=== PATIENT | male | born 1945 | race Caucasian/White ===

== ENCOUNTER 2016-12-03 16:30 | Emergency (ER) | payer MEDICARE ==
[2016-12-03 18:23] VITALS: BP 138/78
[2016-12-03] MEDS ORDERED: Doxycycline 100 MG Cap PO ONE (18:46)
--- NOTE | 2016-12-03 18:51 | EDM.PDOC ---
ED HPI GENERAL MEDICAL PROBLEM - General Chief Complaint: Bite:Animal, Insect Stated Complaint: WOODTICK Time Seen by Provider: 12/03/16 18:15 Source of Information: Reports: Patient History Limitations: Reports: No Limitations - History of Present Illness INITIAL COMMENTS - FREE TEXT/NARRATIVE: Nishant is a 71-year-old male who presents to the emergency department today after being bit by a tick to his left chest yesterday. Patient reports that his removed the body with tweezers but was unable to get the head out. He denies any other complaints. - Related Data Allergies Allergy/AdvReac Type Severity Reaction Status Date / Time No Known Allergies Allergy Verified 12/03/16 18:23 Home Meds: Home Meds Cholecalciferol (Vitamin D3) [Vitamin D] 1 cap PO DAILY 10/30/14 [History] PARoxetine HCl [Paxil] 10 mg PO DAILY 10/30/14 [History] atorvaSTATin [Lipitor] 10 mg PO BEDTIME 10/30/14 [History] metFORMIN [Glucophage] 500 mg PO BEDTIME 10/30/14 [History] Acetaminophen [Tylenol Arthritis Pain] 2 tab PO BEDTIME 07/16/15 [History] Aspirin [Halfprin] 81 mg PO DAILY 07/16/15 [History] Past Medical History HEENT History: Reports: Hard of Hearing Cardiovascular History: Reports: High Cholesterol Other Cardiovascular History: vaso vagal response Other Musculoskeletal History: right elbow 1992 with hardware Other Neuro History: numbness pain in right thigh "down the side" Psychiatric History: Reports: Depression Endocrine/Metabolic History: Reports: Diabetes, Type II Oncologic (Cancer) History: Reports: Basal Cell Carcinoma Other Dermatologic History: skin ca on nose and chest - Infectious Disease History Infectious Disease History: Reports: Chicken Pox, Measles, Mumps - Past Surgical History Other HEENT Surgeries/Procedures: BASAL CELL CARCINOMA OF THE NOSE X 2 Male Surgical History: Reports: Vasectomy Musculoskeletal Surgical History: Reports: Other (See Below) Other Musculoskeletal Surgeries/Procedures:: R ELBOW FX WITH HARDWARE REPAIR Social & Family History - Tobacco Use Smoking Status *Q: Unknown Ever Smoked Years of Tobacco use: 3 Used Tobacco, but Quit: Yes Month Tobacco Last Used: 12 Second Hand Smoke Exposure: No - Alcohol Use Days Per Week of Alcohol Use: 2 Number of Drinks Per Day: 2 Total Drinks Per Week: 4 - Recreational Drug Use Recreational Drug Use: No ED ROS GENERAL - Review of Systems Review Of Systems: ROS reveals no pertinent complaints other than HPI. ED EXAM, ANIMAL BITE - Physical Exam Exam: See Below Exam Limited By: No Limitations General Appearance: Alert, WD/WN, No Apparent Distress Throat/Mouth: Normal Inspection Head: Atraumatic Neck: Normal Inspection Respiratory/Chest: No Respiratory Distress, Lungs Clear, Normal Breath Sounds Cardiovascular: Regular Rate, Rhythm Back Exam: Normal Inspection Extremities: Normal Inspection Neurological: Alert, Oriented, CN II-XII Intact Psychiatric: Normal Affect, Normal Mood Skin Exam: Normal Color, Warm/Dry, Other (small tick that is embedded into left upper chest, this was removed without tweezers without difficulty. There is no evidence of cellulitis or infection. There is no bull's-eye rash.) Course - Vital Signs Last Recorded V/S: Last Vital Signs Temp 35.4 C 12/03/16 18:19 Pulse 66 12/03/16 18:19 Resp 15 12/03/16 18:19 BP 138/78 12/03/16 18:19 Pulse Ox 97 12/03/16 18:19 Nishant is a 71-year-old male who presents to the emergency department today with a tick bite his left upper chest with the head still embedded. The head was easily removed here in the ED. Patient is unsure what type of tick he was bit by, I did given a prophylactic dose of doxycycline as he was just that yesterday. Symptoms to monitor for for tick borne related illness were discussed with patient, he was agreeable to plan of care and discharged in stable condition. - Orders/Labs/Meds Orders: Active Orders 24 hr Category Date Time Status Doxycycline [Vibramycin] Med 12/03/16 18:46 Once 200 mg PO ONETIME ONE Departure - Departure Time of Disposition: 19:00 Disposition: Home, Self-Care 01 Condition: Good Clinical Impression: Tick bite Qualifiers: Encounter type: initial encounter Qualified Code(s): W57.XXXA - Bitten or stung by nonvenomous insect and other nonvenomous arthropods, initial encounter - Discharge Information Instructions: Ehrlichiosis and Anaplasmosis, Lyme Disease Referrals: Austyn Blackman Sr, MD [Primary Care Provider] - - My Orders Last 24 Hours: My Active Orders 12/03/16 18:46 Doxycycline [Vibramycin] 200 mg PO ONETIME ONE - Assessment/Plan Last 24 Hours: My Active Orders 12/03/16 18:46 Doxycycline [Vibramycin] 200 mg PO ONETIME ONE
== END 2016-12-03 19:19 | disposition home or self-care (01) ==
LOC: JP.ED 16:30
DX: S20.362A Insect bite (nonvenomous) of left front wall of thorax, initial encounter (principal); F32.9 Major depressive disorder, single episode, unspecified; E11.9 Type 2 diabetes mellitus without complications; Z87.891 Personal history of nicotine dependence; Z85.828 Personal history of other malignant neoplasm of skin; E78.00 Pure hypercholesterolemia, unspecified; Z79.82 Long term (current) use of aspirin; Z79.84 Long term (current) use of oral hypoglycemic drugs; Z79.899 Other long term (current) drug therapy; W57.XXXA Bitten or stung by nonvenomous insect and other nonvenomous arthropods, initial encounter
CPT/HCPCS: 99283; A9270

== ENCOUNTER 2017-05-31 12:03 | Inpatient (IN) | payer MEDICARE ==
[2017-05-31] MEDS ORDERED: Lactated Ringers 1,000 ML IV ONE (12:22)
[2017-05-31] MEDS ORDERED: Acetaminophen 500 MG Tab PO ONE (12:23)
--- NOTE | 2017-05-31 12:28 | EDM.PDOC ---
ED HPI GENERAL MEDICAL PROBLEM - General Chief Complaint: Genitourinary Problem Stated Complaint: MEDICAL VIA [facility] Time Seen by Provider: 05/31/17 12:15 Source of Information: Reports: Patient, Old Records, RN History Limitations: Reports: No Limitations - History of Present Illness INITIAL COMMENTS - FREE TEXT/NARRATIVE: 72 yo male is home alone for awhile while his is out of town. He is brought in via EMS today for a fall in his home last night not associated with injury and weakness today. Says his urine is dark and he has some dysuria and has had some urinary incontinence. No cough. Was not aware of his fever. Says he has been eating and drinking OK. Onset: Gradual Onset Date: 05/30/17 Duration: Hour(s):, Getting Worse Location: Reports: Generalized (weakness.) Quality: Reports: Other (mild dysuria is his only pain.) Severity: Moderate Improves with: Reports: Rest Worsens with: Reports: Movement (weak and dizzy when he tries to get up. Gait unsteady.) Context: Reports: Other (unknown) Associated Symptoms: Reports: Weakness. Denies: Cough, Fever/Chills (was unaware of a fever before arrival. ), Headaches, Nausea/Vomiting, Rash, Shortness of Breath Treatments CUSTOMER SERVICE AGENT: Reports: Other (see below) (none) - Related Data Allergies Allergy/AdvReac Type Severity Reaction Status Date / Time No Known Allergies Allergy Verified 05/31/17 12:25 Home Meds: Home Meds Cholecalciferol (Vitamin D3) [Vitamin D] 1 cap PO DAILY 10/30/14 [History] PARoxetine HCl [Paxil] 10 mg PO DAILY 10/30/14 [History] atorvaSTATin [Lipitor] 10 mg PO BEDTIME 10/30/14 [History] metFORMIN [Glucophage] 500 mg PO BEDTIME 10/30/14 [History] Acetaminophen [Tylenol Arthritis Pain] 2 tab PO BEDTIME 07/16/15 [History] Aspirin [Halfprin] 81 mg PO DAILY 07/16/15 [History] Past Medical History HEENT History: Reports: Hard of Hearing Cardiovascular History: Reports: High Cholesterol Other Cardiovascular History: vaso vagal response Other Musculoskeletal History: right elbow 1991 with hardware Other Neuro History: numbness pain in right thigh "down the side" Psychiatric History: Reports: Depression Endocrine/Metabolic History: Reports: Diabetes, Type II Oncologic (Cancer) History: Reports: Basal Cell Carcinoma Other Dermatologic History: skin ca on nose and chest - Infectious Disease History Infectious Disease History: Reports: Chicken Pox, Measles, Mumps - Past Surgical History Other HEENT Surgeries/Procedures: BASAL CELL CARCINOMA OF THE NOSE X 2 Male Surgical History: Reports: Vasectomy Musculoskeletal Surgical History: Reports: Other (See Below) Other Musculoskeletal Surgeries/Procedures:: R ELBOW FX WITH HARDWARE REPAIR Social & Family History - Tobacco Use Smoking Status *Q: Unknown Ever Smoked Years of Tobacco use: 3 Used Tobacco, but Quit: Yes Month/Year Tobacco Last Used: 12 Second Hand Smoke Exposure: No - Alcohol Use Days Per Week of Alcohol Use: 2 Number of Drinks Per Day: 2 Total Drinks Per Week: 4 - Recreational Drug Use Recreational Drug Use: No ED ROS GENERAL - Review of Systems Review Of Systems: See Below Constitutional: Reports: Weakness HEENT: Reports: No Symptoms Respiratory: Reports: No Symptoms Cardiovascular: Reports: No Symptoms GI/Abdominal: Reports: No Symptoms : Reports: Dysuria, Incontinence Musculoskeletal: Reports: No Symptoms Skin: Reports: No Symptoms Neurological: Reports: Gait Disturbance (ataxic) Psychiatric: Reports: No Symptoms ED EXAM, RENAL/ - Physical Exam Exam: See Below Exam Limited By: No Limitations General Appearance: Alert, WD/WN, No Apparent Distress Eye Exam: Bilateral Eye: Normal Inspection Ears: Normal External Exam, Normal Canal, Hearing Grossly Normal, Normal TMs Nose: Normal Inspection, Normal Mucosa Throat/Mouth: Normal Inspection, Normal Lips, Normal Oropharynx, Normal Voice, No Airway Compromise Head: Atraumatic Neck: Normal Inspection, Supple Respiratory/Chest: No Respiratory Distress, Lungs Clear, Normal Breath Sounds, No Accessory Muscle Use Cardiovascular: Regular Rate, Rhythm, No Edema GI/Abdominal: Normal Bowel Sounds, Soft, Non-Tender, No Distention (Male) Exam: Other (pants wet from urinary incontinence. ) Back Exam: Normal Inspection. No: CVA Tenderness (R), CVA Tenderness (L) Extremities: Normal Inspection, Normal Range of Motion, Non-Tender, No Pedal Edema Neurological: Alert, Oriented, CN II-XII Intact, Normal Cognition, No Motor/ Sensory Deficits Psychiatric: Normal Affect, Normal Mood Skin Exam: Warm, Dry, Intact, Normal Color, No Rash Lymphatic: No Adenopathy Course - Vital Signs Text/Narrative:: Dr. Aguilar notified @ 1402h of need for admission. Last Recorded V/S: Last Vital Signs Temp 38.4 C H 05/31/17 12:22 Pulse 86 05/31/17 12:22 Resp 14 05/31/17 12:22 BP 111/62 05/31/17 12:22 Pulse Ox 93 L 05/31/17 12:22 - Orders/Labs/Meds Orders: Active Orders 24 hr Category Date Time Status CULTURE BLOOD [BC] Stat Lab 05/31/17 13:15 Ordered CULTURE URINE [RM] Stat Lab 05/31/17 13:40 Received UA W/MICROSCOPIC [URIN] Stat Lab 05/31/17 13:17 Ordered cefTRIAXone [Rocephin] 1 gm Med 05/31/17 13:38 Active Sodium Chloride 0.9% [Normal Saline] 50 ml IV ONETIME Medication Orders Ceftriaxone Sodium 1 gm/ (Sodium Chloride) 50 mls @ 100 mls/hr IV ONETIME ONE Stop: 05/31/17 14:07 Labs: Laboratory Tests 05/31/17 05/31/17 05/31/17 Range/Units 12:22 12:22 13:17 WBC 22.8 H (4.5-11.0) K/uL RBC 4.75 (4.30-5.90) M/uL Hgb 13.6 (12.0-15.0) g/dL Hct 40.8 (40.0-54.0) % MCV 86 (80-98) fL MCH 29 (27-31) pg MCHC 33 (32-36) % Plt Count 181 (150-400) K/uL Sodium 139 L (140-148) mmol/L Potassium 4.3 (3.6-5.2) mmol/L Chloride 103 (100-108) mmol/L Carbon Dioxide 26 (21-32) mmol/L Anion Gap 14.3 H (5.0-14.0) mmol/L BUN 16 (7-18) mg/dL Creatinine 1.1 (0.8-1.3) mg/dL Est Cr Clr Drug Dosing 62.68 mL/min Estimated GFR (MDRD) > 60 (>60) Glucose 162 H (74-106) mg/dL Calcium 8.7 (8.5-10.1) mg/dL Urine Color Yellow Urine Appearance Cloudy Urine pH 5.0 (4.5-8.0) Ur Specific [place] 1.020 (1.008-1.030) Urine Protein 30 H (NEGATIVE) mg/dL Urine Glucose (UA) Normal (NEGATIVE) mg/dL Urine Ketones Negative (NEGATIVE) mg/dL Urine Occult Blood Large (NEGATIVE) Urine Nitrite Positive H (NEGAITVE) Urine Bilirubin Small (NEGATIVE) Urine Urobilinogen 1 (NORMAL) mg/dL Ur Leukocyte Esterase Moderate (NEGATIVE) Urine RBC 5-10 H (0-5) Urine WBC 75-100 H (0-5) Ur Epithelial Cells Not seen Amorphous Sediment Not seen Urine Bacteria Many Urine Mucus Few Meds: Medications Generic Name Dose Route Start Last Admin Trade Name Freq PRN Reason Stop Dose Admin Ceftriaxone Sodium 1 gm/ 50 mls @ 100 mls/hr 05/31/17 13:38 Sodium Chloride IV 05/31/17 14:07 ONETIME ONE Discontinued Medications Generic Name Dose Route Start Last Admin Trade Name Freq PRN Reason Stop Dose Admin Acetaminophen 1,000 mg 05/31/17 12:23 05/31/17 13:19 Tylenol Extra Strength PO 05/31/17 12:24 1,000 mg ONETIME ONE Administration Lactated Ringer's 1,000 mls @ 1,000 mls/hr 05/31/17 12:22 05/31/17 13:19 Ringers, Lactated IV 05/31/17 13:21 1,000 mls/hr BOLUS ONE Administration Departure - Departure Time of Disposition: 14:30 Disposition: Admitted As Inpatient 66 Condition: Fair Clinical Impression: Urinary tract infection with fever - Discharge Information Referrals: PCP,None [Primary Care Provider] - Forms: ED Department Discharge - My Orders Last 24 Hours: My Active Orders 05/31/17 13:15 CULTURE BLOOD [BC] Stat 05/31/17 13:17 UA W/MICROSCOPIC [URIN] Stat 05/31/17 13:38 cefTRIAXone [Rocephin] 1 gm Sodium Chloride 0.9% [Normal Saline] 50 ml IV ONETIME 05/31/17 13:40 CULTURE URINE [RM] Stat - Assessment/Plan Last 24 Hours: My Active Orders 05/31/17 13:15 CULTURE BLOOD [BC] Stat 05/31/17 13:17 UA W/MICROSCOPIC [URIN] Stat 05/31/17 13:38 cefTRIAXone [Rocephin] 1 gm Sodium Chloride 0.9% [Normal Saline] 50 ml IV ONETIME 05/31/17 13:40 CULTURE URINE [RM] Stat
[2017-05-31] MEDS ORDERED: cefTRIAXone 1 GM in Sodium Chloride 0.9% 50 ML IV ONE ×2 (13:38→14:15)
--- NOTE | 2017-05-31 13:59 | CR ---
Cardiomegaly. This is mild and unchanged. No focal consolidation. Pulmonary vasculature within normal limits.
--- NOTE | 2017-05-31 14:43 | PCM.HP ---
H&P History of Present Illness - General Date of Service: 05/31/17 Admit Problem/Dx: Admission Diagnosis/Problem Admission Diagnosis/Problem UTI (urinary tract infection) due to urinary indwelling catheter Source of Information: Patient, EMS, EMS Notes Reviewed History Limitations: Reports: No Limitations - History of Present Illness Initial Comments - Free Text/Narative: He started to have urine burning and increased frequency yesterday. He in gone for 2 weeks so he called her and she said to call the EMS and go to the ER. This morning he also had a bad smell from the urine. He had also fever and chills. Onset of Symptoms: Reports: Sudden Symptom Onset Date: 05/31/17 Duration of Symptoms: Reports: Day(s): Location: Reports: Other (Pain over the bladder area.) - Related Data Allergies/Adverse Reactions: Allergies Allergy/AdvReac Type Severity Reaction Status Date / Time No Known Allergies Allergy Verified 05/31/17 12:25 Home Medications: Home Meds Cholecalciferol (Vitamin D3) [Vitamin D] 1 cap PO DAILY 10/30/14 [History] PARoxetine HCl [Paxil] 10 mg PO DAILY 10/30/14 [History] atorvaSTATin [Lipitor] 10 mg PO BEDTIME 10/30/14 [History] metFORMIN [Glucophage] 500 mg PO BEDTIME 10/30/14 [History] Acetaminophen [Tylenol Arthritis Pain] 2 tab PO BEDTIME 07/16/15 [History] Aspirin [Halfprin] 81 mg PO DAILY 07/16/15 [History] Past Medical History HEENT History: Reports: Hard of Hearing Cardiovascular History: Reports: High Cholesterol Other Cardiovascular History: vaso vagal response Other Musculoskeletal History: right elbow 1991 with hardware Other Neuro History: numbness pain in right thigh "down the side" Psychiatric History: Reports: Depression Endocrine/Metabolic History: Reports: Diabetes, Type II Oncologic (Cancer) History: Reports: Basal Cell Carcinoma Other Dermatologic History: skin ca on nose and chest - Infectious Disease History Infectious Disease History: Reports: Chicken Pox, Measles, Mumps - Past Surgical History Other HEENT Surgeries/Procedures: BASAL CELL CARCINOMA OF THE NOSE X 2 Male Surgical History: Reports: Vasectomy Musculoskeletal Surgical History: Reports: Other (See Below) Other Musculoskeletal Surgeries/Procedures:: R ELBOW FX WITH HARDWARE REPAIR Social & Family History - Tobacco Use Smoking Status *Q: Unknown Ever Smoked Years of Tobacco use: 3 Used Tobacco, but Quit: Yes Month/Year Tobacco Last Used: 12 Second Hand Smoke Exposure: No - Alcohol Use Days Per Week of Alcohol Use: 2 Number of Drinks Per Day: 2 Total Drinks Per Week: 4 - Recreational Drug Use Recreational Drug Use: No H&P Review of Systems - Review of Systems: Review Of Systems: See Below General: Reports: Fever, Chills, Weakness, Decreased Appetite HEENT: Reports: No Symptoms Pulmonary: Reports: No Symptoms Cardiovascular: Reports: No Symptoms Gastrointestinal: Reports: No Symptoms Genitourinary: Reports: Dysuria, Frequency, Burning, Pain, Urgency, Incontinence Musculoskeletal: Reports: No Symptoms Skin: Reports: No Symptoms Psychiatric: Reports: No Symptoms Neurological: Reports: No Symptoms Hematologic/Lymphatic: Reports: No Symptoms Immunologic: Reports: No Symptoms Exam - Exam Exam: See Below - Vital Signs Vital Signs: Last Vital Signs Temp 101.2 F H 05/31/17 12:22 Pulse 86 05/31/17 12:22 Resp 14 05/31/17 12:22 BP 111/62 05/31/17 12:22 Pulse Ox 93 L 05/31/17 12:22 Weight: 172 lb - Exam General: Other (He was initally confused when coming to the ER and given fluid and he improved mentally) HEENT: PERRLA, Hearing Intact, Mucosa Moist & [place], Nares Patent, Normal Nasal Septum, Posterior Pharynx Clear, Conjunctiva Clear, EOMI, EACs Clear, TMs Clear Neck: Supple, Trachea Midline, 2 Lungs: Clear to Auscultation, Normal Respiratory Effort Cardiovascular: Regular Rate, Regular Rhythm GI/Abdominal Exam: Normal Bowel Sounds, Soft, Non-Tender, No Organomegaly, No Distention, No Abnormal Bruit, No Mass, Pelvis Stable (Male) Exam: Other (There is pain to palpation over the bladder area.) Rectal (Males) Exam: Normal Exam, Normal Rectal Tone, Prostate Normal Back Exam: Normal Inspection, Full Range of Motion, NT Extremities: Normal Inspection Peripheral Pulses: 1+: Radial (L), Radial (R) Skin: Warm Neurological: Cranial Nerves Intact, Reflexes Equal Bilateral Neuro Extensive - Mental Status: Alert, Oriented x3, Normal Mood/Affect, Normal Cognition Neuro Extensive - Motor, Sensory, Reflexes: CN II-XII Intact, Normal Gait, Normal Reflexes DTR: 1+: Bicep (L), Bicep (R) Psychiatric: Alert, Normal Affect, Normal Mood - Patient Data Lab Results Last 24 hrs: Laboratory Results - last 24 hr 05/31/17 05/31/17 05/31/17 Range/Units 12:22 12:22 13:17 WBC 22.8 H (4.5-11.0) K/uL RBC 4.75 (4.30-5.90) M/uL Hgb 13.6 (12.0-15.0) g/dL Hct 40.8 (40.0-54.0) % MCV 86 (80-98) fL MCH 29 (27-31) pg MCHC 33 (32-36) % Plt Count 181 (150-400) K/uL Sodium 139 L (140-148) mmol/L Potassium 4.3 (3.6-5.2) mmol/L Chloride 103 (100-108) mmol/L Carbon Dioxide 26 (21-32) mmol/L Anion Gap 14.3 H (5.0-14.0) mmol/L BUN 16 (7-18) mg/dL Creatinine 1.1 (0.8-1.3) mg/dL Est Cr Clr Drug Dosing 62.68 mL/min Estimated GFR (MDRD) > 60 (>60) Glucose 162 H (74-106) mg/dL Calcium 8.7 (8.5-10.1) mg/dL Urine Color Yellow Urine Appearance Cloudy Urine pH 5.0 (4.5-8.0) Ur Specific [place] 1.020 (1.008-1.030) Urine Protein 30 H (NEGATIVE) mg/dL Urine Glucose (UA) Normal (NEGATIVE) mg/dL Urine Ketones Negative (NEGATIVE) mg/dL Urine Occult Blood Large (NEGATIVE) Urine Nitrite Positive H (NEGAITVE) Urine Bilirubin Small (NEGATIVE) Urine Urobilinogen 1 (NORMAL) mg/dL Ur Leukocyte Esterase Moderate (NEGATIVE) Urine RBC 5-10 H (0-5) Urine WBC 75-100 H (0-5) Ur Epithelial Cells Not seen Amorphous Sediment Not seen Urine Bacteria Many Urine Mucus Few Result Diagrams: 06/01/17 04:55 05/31/17 12:22 Problem List Initiated/Reviewed/Updated: Yes Orders Last 24hrs: Active Orders 24 hr Category Date Time Status Patient Status [ADT] Routine ADT 05/31/17 14:28 Ordered Ambulate [RC] QID Care 05/31/17 14:27 Ordered Blood Glucose Check, Bedside [RC] QIDACANDBED Care 05/31/17 14:34 Ordered Height and Weight [RC] UPON Care 05/31/17 14:27 Ordered Intake and Output [RC] QSHIFT Care 05/31/17 14:30 Ordered Oxygen Therapy [RC] PRN Care 05/31/17 14:28 Ordered Up ad Josie [RC] ASDIRECTED Care 05/31/17 14:27 Ordered Up to Chair [RC] QID Care 05/31/17 14:27 Ordered VTE/DVT Education [RC] Per Unit Routine Care 05/31/17 14:28 Ordered Vital Signs [RC] Q4H Care 05/31/17 14:28 Ordered Regular Diet [DIET] Diet 05/31/17 Dinner Ordered CBC WITH AUTO DIFF [HEME] AM Lab 06/01/17 05:11 Ordered CULTURE BLOOD [BC] Stat Lab 05/31/17 13:15 Ordered CULTURE URINE [RM] Stat Lab 05/31/17 13:40 Received UA W/MICROSCOPIC [URIN] Stat Lab 05/31/17 13:17 Ordered Acetaminophen [Tylenol Arthritis Pain] Med 05/31/17 21:00 Ordered 2 tab PO BEDTIME Aspirin [Halfprin] Med 06/01/17 09:00 Ordered 81 mg PO DAILY Cholecalciferol (Vitamin D3) [Vitamin D3] Med 06/01/17 09:00 Ordered 1 cap PO DAILY Levofloxacin/Dextrose 5%-Water [Levaquin in D5W 500 MG/ Med 05/31/17 14:45 Ordered 100 ML] 500 mg Premix Bag 1 bag IV Q24H PARoxetine HCl [Paxil] Med 06/01/17 09:00 Ordered 10 mg PO DAILY atorvaSTATin [Lipitor] Med 05/31/17 21:00 Ordered 10 mg PO BEDTIME cefTRIAXone [Rocephin] 1 gm Med 05/31/17 14:15 Active Sodium Chloride 0.9% [Normal Saline] 50 ml IV ONETIME cefTRIAXone [Rocephin] 1 gm Med 05/31/17 14:45 Ordered Sodium Chloride 0.9% [Normal Saline] 50 ml IV Q24H metFORMIN [Glucophage] Med 05/31/17 21:00 Ordered 500 mg PO BEDTIME Resuscitation Status Routine Resus Stat 05/31/17 14:27 Ordered Medication Orders Aspirin (Halfprin) 81 mg PO DAILY JIMMY Atorvastatin Calcium (Lipitor) 10 mg PO BEDTIME JIMMY Ceftriaxone Sodium 1 gm/ (Sodium Chloride) 50 mls @ 100 mls/hr IV ONETIME ONE Stop: 05/31/17 14:44 Ceftriaxone Sodium 1 gm/ (Sodium Chloride) 50 mls @ 100 mls/hr IV Q24H JIMMY Levofloxacin/Dextrose 500 mg/ (Premix) 100 mls @ 100 mls/hr IV Q24H JIMMY Metformin HCl (Glucophage) 500 mg PO BEDTIME JIMMY Non-Formulary Medication (Acetaminophen [Tylenol Arthritis Pain]) 2 tab PO BEDTIME JIMMY Non-Formulary Medication (Cholecalciferol (Vitamin D3) [Vitamin D3]) 1 cap PO DAILY JIMMY Non-Formulary Medication (Paroxetine Hcl [Paxil]) 10 mg PO DAILY JIMMY Assessment/Plan Comment:: Assessment/Plan: #1. Sepsis with UTI: Will start Rocephin and Levoquin #2. DM II: Will continue with meds and check blood sugars. #3. HLD: Continue with the Statin. #4. Depression: Continue with the Med.
[2017-05-31] MEDS: Levofloxacin/Dextrose 5%-Water 500 MG in Premix Bag 1 BAG IV SCH (16:39)
[2017-05-31] MEDS: Lactated Ringers 1,000 ML IV SCH (17:16)
[2017-05-31] MEDS: Acetaminophen 325 MG Tab PO PRN (19:20)
[2017-05-31] MEDS: metFORMIN 500 MG Tab.ER PO SCH (20:52)
[2017-05-31] MEDS: atorvaSTATin 10 MG Tab PO SCH (20:52)
[2017-05-31] MEDS: Acetaminophen 325 MG Tab PO SCH (20:52)
[2017-05-31] MEDS ORDERED: ACETAMINOPHEN PO SCH (21:00)
[2017-05-31] MEDS ORDERED: metFORMIN 500 MG Tab PO SCH (21:00)
[2017-05-31] MEDS ORDERED: Lactated Ringers 250 ML IV SCH (23:45)
[2017-06-01] MEDS: Lactated Ringers 1,000 ML IV SCH ×2 (00:58→23:18)
[2017-06-01] MEDS: Acetaminophen 325 MG Tab PO PRN (01:09)
[2017-06-01] MEDS ORDERED: PAROXETINE HCL 10 MG PO SCH (09:00)
[2017-06-01] MEDS ORDERED: CHOLECALCIFEROL PO SCH (09:00)
[2017-06-01] MEDS: Cholecalciferol (Vitamin D3) 1,000 Unit Tab PO SCH (09:22)
[2017-06-01] MEDS: Aspirin 81 MG Tab.EC PO SCH (09:22)
[2017-06-01] MEDS: PARoxetine 20 MG Tab PO SCH (09:23)
[2017-06-01] MEDS ORDERED: cefTRIAXone 1 GM in Sodium Chloride 0.9% 50 ML IV SCH (14:00)
[2017-06-01] MEDS: Levofloxacin/Dextrose 5%-Water 500 MG in Premix Bag 1 BAG IV SCH (15:14)
--- NOTE | 2017-06-01 18:56 | PCM.HP ---
H&P History of Present Illness - General Date of Service: 05/31/17 Admit Problem/Dx: Admission Diagnosis/Problem Admission Diagnosis/Problem UTI (urinary tract infection) Source of Information: Patient History Limitations: Reports: No Limitations - History of Present Illness Initial Comments - Free Text/Narative: Started having fever and chills in the evening then became disorientated. He was confused and called 911 and came to the ER . The temp the nest morning was almost 102 degrees F. Onset of Symptoms: Reports: Gradual Location: Reports: Other (Bladder area pain) Improves with: Reports: None Worsens with: Reports: None - Related Data Allergies/Adverse Reactions: Allergies Allergy/AdvReac Type Severity Reaction Status Date / Time No Known Allergies Allergy Verified 05/31/17 12:25 Home Medications: Home Meds Cholecalciferol (Vitamin D3) [Vitamin D] 1 cap PO DAILY 10/30/14 [History] PARoxetine HCl [Paxil] 10 mg PO DAILY 10/30/14 [History] atorvaSTATin [Lipitor] 10 mg PO BEDTIME 10/30/14 [History] metFORMIN [Glucophage] 500 mg PO BEDTIME 10/30/14 [History] Acetaminophen [Tylenol Arthritis Pain] 2 tab PO BEDTIME 07/16/15 [History] Aspirin [Halfprin] 81 mg PO DAILY 07/16/15 [History] Past Medical History HEENT History: Reports: Hard of Hearing Cardiovascular History: Reports: High Cholesterol Other Cardiovascular History: vaso vagal response Other Musculoskeletal History: right elbow 1992 with hardware Other Neuro History: numbness pain in right thigh "down the side" Psychiatric History: Reports: Depression Endocrine/Metabolic History: Reports: Diabetes, Type II Oncologic (Cancer) History: Reports: Basal Cell Carcinoma Other Dermatologic History: skin ca on nose and chest - Infectious Disease History Infectious Disease History: Reports: Chicken Pox, Measles, Mumps - Past Surgical History Other HEENT Surgeries/Procedures: BASAL CELL CARCINOMA OF THE NOSE X 2 Male Surgical History: Reports: Vasectomy Musculoskeletal Surgical History: Reports: Other (See Below) Other Musculoskeletal Surgeries/Procedures:: R ELBOW FX WITH HARDWARE REPAIR Social & Family History - Tobacco Use Smoking Status *Q: Former Smoker Years of Tobacco use: 4 Used Tobacco, but Quit: Yes Month/Year Tobacco Last Used: 1967 Second Hand Smoke Exposure: No - Caffeine Use Caffeine Use: Reports: Coffee - Alcohol Use Days Per Week of Alcohol Use: 5 Number of Drinks Per Day: 1 Total Drinks Per Week: 5 - Recreational Drug Use Recreational Drug Use: No H&P Review of Systems - Review of Systems: Review Of Systems: See Below General: Reports: Fever, Chills, Malaise, Weakness, Fatigue HEENT: Reports: No Symptoms, Other (nose unremarkable) Pulmonary: Reports: No Symptoms Cardiovascular: Reports: No Symptoms Gastrointestinal: Reports: No Symptoms Genitourinary: Reports: Dysuria, Frequency Musculoskeletal: Reports: No Symptoms Skin: Reports: No Symptoms Psychiatric: Reports: No Symptoms Neurological: Reports: No Symptoms Hematologic/Lymphatic: Reports: No Symptoms Exam - Exam Exam: See Below - Vital Signs Vital Signs: Last Vital Signs Temp 97.3 F 06/01/17 18:21 Pulse 76 06/01/17 18:21 Resp 18 06/01/17 18:21 BP 125/68 06/01/17 18:21 Pulse Ox 100 06/01/17 18:21 Weight: 181 lb 6.412 oz - Exam General: Alert, Oriented, 4 HEENT: PERRLA, Hearing Intact, Mucosa Moist & [place], Nares Patent, Normal Nasal Septum, Posterior Pharynx Clear, Conjunctiva Clear, EOMI, EACs Clear, TMs Clear Neck: Supple, Trachea Midline, 2 Lungs: Clear to Auscultation, Normal Respiratory Effort Cardiovascular: Regular Rate, Regular Rhythm GI/Abdominal Exam: Normal Bowel Sounds, Soft, Non-Tender, No Organomegaly, No Distention, No Abnormal Bruit, No Mass, Pelvis Stable Back Exam: Normal Inspection, Full Range of Motion, NT Peripheral Pulses: 1+: Radial (L), Radial (R) Skin: Warm, Dry, Intact Neuro Extensive - Mental Status: Alert, Oriented x3, Normal Mood/Affect, Normal Cognition Neuro Extensive - Motor, Sensory, Reflexes: CN II-XII Intact, Normal Gait, Normal Reflexes DTR: 1+: Bicep (L), Bicep (R) Psychiatric: Alert, Normal Affect, Normal Mood - Patient Data Lab Results Last 24 hrs: Laboratory Results - last 24 hr 06/01/17 Range/Units 04:55 WBC 19.0 H (4.5-11.0) K/uL RBC 4.23 L (4.30-5.90) M/uL Hgb 12.2 (12.0-15.0) g/dL Hct 37.0 L (40.0-54.0) % MCV 88 (80-98) fL MCH 29 (27-31) pg MCHC 33 (32-36) % Plt Count 148 L (150-400) K/uL Neut % (Auto) 80 H (36-66) % Lymph % (Auto) 12 L (24-44) % [place] % (Auto) 7 H (2-6) % Eos % (Auto) 0 L (2-4) % Baso % (Auto) 0 (0-1) % Result Diagrams: 06/01/17 04:55 05/31/17 12:22 Reji Results Last 24 hrs: Microbiology 05/31/17 13:15 Aerobic Blood Culture - Preliminary Blood - Arm, Left NO GROWTH AFTER 1 DAY Anaerobic Blood Culture - Preliminary NO GROWTH AFTER 1 DAY 05/31/17 13:40 Urine Culture - Preliminary Urine, Catheterized Problem List Initiated/Reviewed/Updated: Yes Orders Last 24hrs: Active Orders 24 hr Category Date Time Status GLUCOSE POC LAB TO COLLECT [POC] BID Lab 06/02/17 17:45 Ordered GLUCOSE POC LAB TO COLLECT [POC] BID Lab 06/03/17 17:45 Ordered GLUCOSE POC LAB TO COLLECT [POC] BID Lab 06/04/17 17:45 Ordered GLUCOSE POC LAB TO COLLECT [POC] BID Lab 06/05/17 17:45 Ordered GLUCOSE POC LAB TO COLLECT [POC] BID Lab 06/06/17 17:45 Ordered GLUCOSE POC LAB TO COLLECT [POC] BID Lab 06/07/17 17:45 Ordered GLUCOSE POC LAB TO COLLECT [POC] DAILY Lab 06/02/17 08:00 Ordered Acetaminophen [Tylenol] Med 05/31/17 21:00 Active 650 mg PO BEDTIME Acetaminophen [Tylenol] Med 05/31/17 18:59 Active 650 mg PO Q4H PRN Aspirin [Halfprin] Med 06/01/17 09:00 Active 81 mg PO DAILY Cholecalciferol (Vitamin D3) [Vitamin D3] Med 06/01/17 09:00 Active 2,000 units PO DAILY PARoxetine [Paxil] Med 06/01/17 09:00 Active 10 mg PO DAILY atorvaSTATin [Lipitor] Med 05/31/17 21:00 Active 10 mg PO BEDTIME cefTRIAXone [Rocephin] 1 gm Med 06/01/17 14:00 Active Sodium Chloride 0.9% [Normal Saline] 50 ml IV Q24H metFORMIN [Glucophage XR] Med 05/31/17 21:00 Active 500 mg PO BEDTIME SCD [Sequential Compression Device] [OM.PC] Routine Oth 06/01/17 00:32 Ordered Medication Orders Acetaminophen (Tylenol) 650 mg PO BEDTIME [facility] Last Admin: 05/31/17 20:52 Dose: 650 mg Acetaminophen (Tylenol) 650 mg PO Q4H PRN PRN Reason: Pain/Fever Last Admin: 06/01/17 01:09 Dose: 650 mg Admin: 05/31/17 19:20 Dose: 650 mg Aspirin (Halfprin) 81 mg PO DAILY [facility] Last Admin: 06/01/17 09:22 Dose: 81 mg Atorvastatin Calcium (Lipitor) 10 mg PO BEDTIME [facility] Last Admin: 05/31/17 20:52 Dose: 10 mg Cholecalciferol (Vitamin D3) 2,000 units PO DAILY [facility] Last Admin: 06/01/17 09:22 Dose: 2,000 units Ceftriaxone Sodium 1 gm/ (Sodium Chloride) 50 mls @ 100 mls/hr IV Q24H [facility] Last Admin: 06/01/17 13:30 Dose: 100 mls/hr Levofloxacin/Dextrose 500 mg/ (Premix) 100 mls @ 100 mls/hr IV Q24H [facility] Last Admin: 06/01/17 15:14 Dose: 100 mls/hr Infusion: 05/31/17 17:39 Dose: 100 mls/hr Admin: 05/31/17 16:39 Dose: 100 mls/hr Lactated Ringer's (Ringers, Lactated) 1,000 mls @ 100 mls/hr IV ASDIRECTED [facility] Last Admin: 06/01/17 00:58 Dose: 100 mls/hr Infusion: 06/01/17 00:58 Dose: 100 mls/hr Admin: 05/31/17 17:16 Dose: 100 mls/hr Metformin HCl (Glucophage Xr) 500 mg PO BEDTIME [facility] Last Admin: 05/31/17 20:52 Dose: 500 mg Paroxetine HCl (Paxil) 10 mg PO DAILY [facility] Last Admin: 06/01/17 09:23 Dose: 10 mg Assessment/Plan Comment:: Assessment/Plan: #1. Sepsis with UTI: Will start Rocephin and Levaquin #2. DM II: Will continue with meds and check blood sugars. #3. HLD: Continue with the Statin. #4. Depression: Continue with the Med.
--- NOTE | 2017-06-01 19:02 | PCM.PN ---
- General Info Date of Service: 06/01/17 Functional Status: Reports: Pain Controlled - Review of Systems General: Reports: Weakness HEENT: Reports: No Symptoms Pulmonary: Reports: No Symptoms Cardiovascular: Reports: No Symptoms Gastrointestinal: Reports: No Symptoms Genitourinary: Reports: No Symptoms Musculoskeletal: Reports: No Symptoms Neurological: Reports: No Symptoms Psychiatric: Reports: No Symptoms - Patient Data Vitals - Most Recent: Last Vital Signs Temp 97.3 F 06/01/17 18:21 Pulse 76 06/01/17 18:21 Resp 18 06/01/17 18:21 BP 125/68 06/01/17 18:21 Pulse Ox 100 06/01/17 18:21 Weight - Most Recent: 172 lb I&O - Last 24 Hours: Intake & Output 06/01/17 06/01/17 06/01/17 06:59 14:59 22:59 Intake Total 1250 50 1073 Output Total 700 200 Balance 1250 -650 873 Lab Results Last 24 Hours: Laboratory Results - last 24 hr 06/01/17 Range/Units 04:55 WBC 19.0 H (4.5-11.0) K/uL RBC 4.23 L (4.30-5.90) M/uL Hgb 12.2 (12.0-15.0) g/dL Hct 37.0 L (40.0-54.0) % MCV 88 (80-98) fL MCH 29 (27-31) pg MCHC 33 (32-36) % Plt Count 148 L (150-400) K/uL Neut % (Auto) 80 H (36-66) % Lymph % (Auto) 12 L (24-44) % [place] % (Auto) 7 H (2-6) % Eos % (Auto) 0 L (2-4) % Baso % (Auto) 0 (0-1) % Reji Results Last 24 Hours: Microbiology 05/31/17 13:15 Aerobic Blood Culture - Preliminary Blood - Arm, Left NO GROWTH AFTER 1 DAY Anaerobic Blood Culture - Preliminary NO GROWTH AFTER 1 DAY 05/31/17 13:40 Urine Culture - Preliminary Urine, Catheterized Med Orders - Current: Current Medications Acetaminophen (Tylenol) 650 mg PO BEDTIME [facility] Last Admin: 05/31/17 20:52 Dose: 650 mg Acetaminophen (Tylenol) 650 mg PO Q4H PRN PRN Reason: Pain/Fever Last Admin: 06/01/17 01:09 Dose: 650 mg Aspirin (Halfprin) 81 mg PO DAILY [facility] Last Admin: 06/01/17 09:22 Dose: 81 mg Atorvastatin Calcium (Lipitor) 10 mg PO BEDTIME [facility] Last Admin: 05/31/17 20:52 Dose: 10 mg Cholecalciferol (Vitamin D3) 2,000 units PO DAILY [facility] Last Admin: 06/01/17 09:22 Dose: 2,000 units Ceftriaxone Sodium 1 gm/ (Sodium Chloride) 50 mls @ 100 mls/hr IV Q24H [facility] Last Admin: 06/01/17 13:30 Dose: 100 mls/hr Levofloxacin/Dextrose 500 mg/ (Premix) 100 mls @ 100 mls/hr IV Q24H [facility] Last Admin: 06/01/17 15:14 Dose: 100 mls/hr Lactated Ringer's (Ringers, Lactated) 1,000 mls @ 100 mls/hr IV ASDIRECTED [facility] Last Admin: 06/01/17 00:58 Dose: 100 mls/hr Metformin HCl (Glucophage Xr) 500 mg PO BEDTIME [facility] Last Admin: 05/31/17 20:52 Dose: 500 mg Paroxetine HCl (Paxil) 10 mg PO DAILY [facility] Last Admin: 06/01/17 09:23 Dose: 10 mg Discontinued Medications Acetaminophen (Tylenol Extra Strength) 1,000 mg PO ONETIME ONE Stop: 05/31/17 12:24 Last Admin: 05/31/17 13:19 Dose: 1,000 mg Lactated Ringer's (Ringers, Lactated) 1,000 mls @ 1,000 mls/hr IV BOLUS ONE Stop: 05/31/17 13:21 Last Admin: 05/31/17 13:19 Dose: 1,000 mls/hr Ceftriaxone Sodium 1 gm/ (Sodium Chloride) 50 mls @ 100 mls/hr IV ONETIME ONE Stop: 05/31/17 14:44 Last Admin: 05/31/17 15:41 Dose: 100 mls/hr Lactated Ringer's (Ringers, Lactated) 250 mls @ 250 mls/hr IV ASDIRECTED [facility] Last Admin: 05/31/17 23:50 Dose: 250 mls/hr - Exam General: Alert, Oriented HEENT: Pupils Equal, Pupils Reactive, EOMI, Mucous Membr. Moist/[place] Neck: Supple Lungs: Clear to Auscultation, Normal Respiratory Effort Cardiovascular: Regular Rate, Regular Rhythm GI/Abdominal Exam: Normal Bowel Sounds, Soft, Non-Tender, No Organomegaly, No Distention, No Abnormal Bruit, No Mass, Pelvis Stable Back Exam: Normal Inspection, Full Range of Motion Peripheral Pulses: 1+: Radial (L), Radial (R) Skin: Warm, Dry, Intact Neurological: No New Focal Deficit - Problem List Review Problem List Initiated/Reviewed/Updated: Yes - My Orders Last 24 Hours: My Active Orders 05/31/17 18:59 Acetaminophen [Tylenol] 650 mg PO Q4H PRN 05/31/17 21:00 Acetaminophen [Tylenol] 650 mg PO BEDTIME atorvaSTATin [Lipitor] 10 mg PO BEDTIME metFORMIN [Glucophage XR] 500 mg PO BEDTIME 06/01/17 00:32 SCD [Sequential Compression Device] [OM.PC] Routine 06/01/17 09:00 Aspirin [Halfprin] 81 mg PO DAILY Cholecalciferol (Vitamin D3) [Vitamin D3] 2,000 units PO DAILY PARoxetine [Paxil] 10 mg PO DAILY 06/01/17 14:00 cefTRIAXone [Rocephin] 1 gm Sodium Chloride 0.9% [Normal Saline] 50 ml IV Q24H 06/02/17 08:00 GLUCOSE POC LAB TO COLLECT [POC] DAILY 06/02/17 17:45 GLUCOSE POC LAB TO COLLECT [POC] BID 06/03/17 17:45 GLUCOSE POC LAB TO COLLECT [POC] BID 06/04/17 17:45 GLUCOSE POC LAB TO COLLECT [POC] BID 06/05/17 17:45 GLUCOSE POC LAB TO COLLECT [POC] BID 06/06/17 17:45 GLUCOSE POC LAB TO COLLECT [POC] BID 06/07/17 17:45 GLUCOSE POC LAB TO COLLECT [POC] BID - Plan Plan:: Assessment/Plan: #1. Sepsis with UTI: He did have a low BP last night but improved today. Will continue with the antibiotics until cultures are reported. #2. DM II: Will continue with meds and check blood sugars. #3. HLD: Continue with the Statin. #4. Depression: Continue with the Med.
[2017-06-01] MEDS: atorvaSTATin 10 MG Tab PO SCH (21:03)
[2017-06-01] MEDS: metFORMIN 500 MG Tab.ER PO SCH (21:03)
[2017-06-01] MEDS: Acetaminophen 325 MG Tab PO SCH (21:03)
[2017-06-02] MEDS: Aspirin 81 MG Tab.EC PO SCH (08:13)
[2017-06-02] MEDS: PARoxetine 20 MG Tab PO SCH (08:13)
[2017-06-02] MEDS: Cholecalciferol (Vitamin D3) 1,000 Unit Tab PO SCH (08:13)
[2017-06-02] MEDS ORDERED: cefTRIAXone 1 GM in Sodium Chloride 0.9% 50 ML IV ONE (11:00)
[2017-06-02 11:11] VITALS: BP 119/73
[2017-06-02] MEDS ORDERED: Levofloxacin/Dextrose 5%-Water 500 MG in Premix Bag 1 BAG IV ONE (12:00)
--- NOTE | 2017-06-02 14:07 | PCM.PN ---
- General Info Date of Service: 06/02/17 Subjective Update: He is feeling better and mentally alert. Functional Status: Reports: Pain Controlled - Review of Systems General: Reports: No Symptoms HEENT: Reports: No Symptoms Pulmonary: Reports: No Symptoms Cardiovascular: Reports: No Symptoms Gastrointestinal: Reports: No Symptoms Musculoskeletal: Reports: No Symptoms Skin: Reports: No Symptoms Neurological: Reports: No Symptoms Psychiatric: Reports: No Symptoms - Patient Data Vitals - Most Recent: Last Vital Signs Temp 98.3 F 06/02/17 11:09 Pulse 64 06/02/17 11:09 Resp 16 06/02/17 11:09 BP 119/73 06/02/17 11:09 Pulse Ox 97 06/02/17 11:09 Weight - Most Recent: 172 lb I&O - Last 24 Hours: Intake & Output 06/01/17 06/02/17 06/02/17 22:59 06:59 14:59 Intake Total 1553 1137 630 Output Total 400 650 300 Balance 1153 487 330 Lab Results Last 24 Hours: Laboratory Results - last 24 hr 06/02/17 06/02/17 Range/Units 07:54 08:00 WBC 8.3 (4.5-11.0) K/uL RBC 4.20 L (4.30-5.90) M/uL Hgb 12.0 (12.0-15.0) g/dL Hct 36.3 L (40.0-54.0) % MCV 86 (80-98) fL MCH 29 (27-31) pg MCHC 33 (32-36) % Plt Count 155 (150-400) K/uL Neut % (Auto) 68 H (36-66) % Lymph % (Auto) 17 L (24-44) % [place] % (Auto) 12 H (2-6) % Eos % (Auto) 2 (2-4) % Baso % (Auto) 1 (0-1) % Sodium 140 (140-148) mmol/L Potassium 4.1 (3.6-5.2) mmol/L Chloride 106 (100-108) mmol/L Carbon Dioxide 27 (21-32) mmol/L Anion Gap 7.2 (5.0-14.0) mmol/L BUN 12 (7-18) mg/dL Creatinine 0.8 (0.8-1.3) mg/dL Est Cr Clr Drug Dosing 86.39 mL/min Estimated GFR (MDRD) > 60 (>60) Glucose 140 H (74-106) mg/dL Calcium 8.2 L (8.5-10.1) mg/dL Reji Results Last 24 Hours: Microbiology 05/31/17 13:15 Aerobic Blood Culture - Preliminary Blood - Arm, Left NO GROWTH AFTER 2 DAYS Anaerobic Blood Culture - Preliminary NO GROWTH AFTER 2 DAYS 05/31/17 13:40 Urine Culture - Final Urine, Catheterized Citrobacter Amalonaticus Med Orders - Current: Current Medications Acetaminophen (Tylenol) 650 mg PO BEDTIME [facility] Last Admin: 06/01/17 21:03 Dose: 650 mg Acetaminophen (Tylenol) 650 mg PO Q4H PRN PRN Reason: Pain/Fever Last Admin: 06/01/17 01:09 Dose: 650 mg Aspirin (Halfprin) 81 mg PO DAILY [facility] Last Admin: 06/02/17 08:13 Dose: 81 mg Atorvastatin Calcium (Lipitor) 10 mg PO BEDTIME [facility] Last Admin: 06/01/17 21:03 Dose: 10 mg Cholecalciferol (Vitamin D3) 2,000 units PO DAILY [facility] Last Admin: 06/02/17 08:13 Dose: 2,000 units Lactated Ringer's (Ringers, Lactated) 1,000 mls @ 100 mls/hr IV ASDIRECTED [facility] Last Admin: 06/01/17 23:18 Dose: 100 mls/hr Metformin HCl (Glucophage Xr) 500 mg PO BEDTIME [facility] Last Admin: 06/01/17 21:03 Dose: 500 mg Paroxetine HCl (Paxil) 10 mg PO DAILY [facility] Last Admin: 06/02/17 08:13 Dose: 10 mg Discontinued Medications Acetaminophen (Tylenol Extra Strength) 1,000 mg PO ONETIME ONE Stop: 05/31/17 12:24 Last Admin: 05/31/17 13:19 Dose: 1,000 mg Lactated Ringer's (Ringers, Lactated) 1,000 mls @ 1,000 mls/hr IV BOLUS ONE Stop: 05/31/17 13:21 Last Admin: 05/31/17 13:19 Dose: 1,000 mls/hr Ceftriaxone Sodium 1 gm/ (Sodium Chloride) 50 mls @ 100 mls/hr IV ONETIME ONE Stop: 05/31/17 14:44 Last Admin: 05/31/17 15:41 Dose: 100 mls/hr Ceftriaxone Sodium 1 gm/ (Sodium Chloride) 50 mls @ 100 mls/hr IV Q24H [facility] Last Admin: 06/01/17 13:30 Dose: 100 mls/hr Levofloxacin/Dextrose 500 mg/ (Premix) 100 mls @ 100 mls/hr IV Q24H [facility] Last Admin: 06/01/17 15:14 Dose: 100 mls/hr Lactated Ringer's (Ringers, Lactated) 250 mls @ 250 mls/hr IV ASDIRECTED [facility] Last Admin: 05/31/17 23:50 Dose: 250 mls/hr Ceftriaxone Sodium 1 gm/ (Sodium Chloride) 50 mls @ 100 mls/hr IV ONETIME ONE Stop: 06/02/17 11:29 Last Admin: 06/02/17 10:35 Dose: 100 mls/hr Levofloxacin/Dextrose 500 mg/ (Premix) 100 mls @ 100 mls/hr IV ONETIME ONE Stop: 06/02/17 12:59 Last Admin: 06/02/17 11:12 Dose: 100 mls/hr - Exam General: Alert, Oriented HEENT: Pupils Equal, Pupils Reactive, EOMI, Mucous Membr. Moist/[place] Neck: Supple Lungs: Clear to Auscultation, Normal Respiratory Effort Cardiovascular: Regular Rate, Regular Rhythm GI/Abdominal Exam: Normal Bowel Sounds, Soft, Non-Tender, No Organomegaly, No Distention, No Abnormal Bruit, No Mass, Pelvis Stable Back Exam: Normal Inspection, Full Range of Motion Peripheral Pulses: 1+: Radial (L), Radial (R) Skin: Warm, Dry, Intact Neurological: No New Focal Deficit Psy/Mental Status: Alert, Normal Affect, Normal Mood - Problem List Review Problem List Initiated/Reviewed/Updated: Yes - My Orders Last 24 Hours: My Active Orders 06/02/17 17:45 GLUCOSE POC LAB TO COLLECT [POC] BID 06/03/17 17:45 GLUCOSE POC LAB TO COLLECT [POC] BID 06/04/17 17:45 GLUCOSE POC LAB TO COLLECT [POC] BID 06/05/17 17:45 GLUCOSE POC LAB TO COLLECT [POC] BID 06/06/17 17:45 GLUCOSE POC LAB TO COLLECT [POC] BID 06/07/17 17:45 GLUCOSE POC LAB TO COLLECT [POC] BID - Plan Plan:: Assessment/Plan: #1. Sepsis with UTI: Stable presently with ID of the infection and will DC home on Cipro. Bacteriia was Citrobacter Amanituaticus #2. DM II: Stable #3. HLD: Continue with the Statin. #4. Depression: Continue with the Med. #5. Blood Pressure stable.
--- NOTE | 2017-06-02 14:10 | PCM.DCSUM1 ---
Discharge Summary - Hospital Course Brief History: He started to have urine burning and increased frequency the day before coming to the ER. He in gone for 2 weeks so he called her and she said to call the EMS and go to the ER. That morning he also had a bad smell from the urine. He had also fever and chills - Discharge Data Discharge Date: 06/02/17 Discharge Disposition: Home, Self-Care 01 Condition: Fair - Patient Summary/Data Hospital Course: He was started on Rocephin and Levaquin and improved. Initially when coming to the ER he was confused. He also had hypotension initially. He made gradual improvement and is being DC in stable condition. - Patient Instructions Diet: Heart Healthy Diet Activity: As Tolerated - Discharge Plan Prescriptions/Med Rec: Ciprofloxacin HCl [Cipro] 500 mg PO BID 7 Days #14 tablet Home Medications: Home Meds Cholecalciferol (Vitamin D3) [Vitamin D3] 1 cap PO DAILY 10/30/14 [History] PARoxetine HCl [Paxil] 10 mg PO DAILY 10/30/14 [History] atorvaSTATin [Lipitor] 10 mg PO BEDTIME 10/30/14 [History] metFORMIN [Glucophage] 500 mg PO BEDTIME 10/30/14 [History] Aspirin [Halfprin] 81 mg PO DAILY 07/16/15 [History] Ciprofloxacin HCl [Cipro] 500 mg PO BID 7 Days #14 tablet 06/02/17 [Rx] Forms: ED Department Discharge Referrals: PCP,None [Primary Care Provider] - - Discharge Summary/Plan Comment DC Time >30 min.: Yes Discharge Summary/Plan Comment: Assessment/Plan: #1. Sepsis with UTI: Stable presently with ID of the infection and will DC home on Cipro. Bacteriia was Citrobacter Amanituaticus #2. DM II: Stable #3. HLD: Continue with the Statin. #4. Depression: Continue with the Med. #5. Blood Pressure stable. - Patient Data Vitals - Most Recent: Last Vital Signs Temp 98.3 F 06/02/17 11:09 Pulse 64 06/02/17 11:09 Resp 16 06/02/17 11:09 BP 119/73 06/02/17 11:09 Pulse Ox 97 06/02/17 11:09 Weight - Most Recent: 172 lb I&O - Last 24 hours: Intake & Output 06/01/17 06/02/17 06/02/17 22:59 06:59 14:59 Intake Total 1553 1137 630 Output Total 400 650 300 Balance 1153 487 330 Lab Results - Last 24 hrs: Laboratory Results - last 24 hr 06/02/17 06/02/17 Range/Units 07:54 08:00 WBC 8.3 (4.5-11.0) K/uL RBC 4.20 L (4.30-5.90) M/uL Hgb 12.0 (12.0-15.0) g/dL Hct 36.3 L (40.0-54.0) % MCV 86 (80-98) fL MCH 29 (27-31) pg MCHC 33 (32-36) % Plt Count 155 (150-400) K/uL Neut % (Auto) 68 H (36-66) % Lymph % (Auto) 17 L (24-44) % [place] % (Auto) 12 H (2-6) % Eos % (Auto) 2 (2-4) % Baso % (Auto) 1 (0-1) % Sodium 140 (140-148) mmol/L Potassium 4.1 (3.6-5.2) mmol/L Chloride 106 (100-108) mmol/L Carbon Dioxide 27 (21-32) mmol/L Anion Gap 7.2 (5.0-14.0) mmol/L BUN 12 (7-18) mg/dL Creatinine 0.8 (0.8-1.3) mg/dL Est Cr Clr Drug Dosing 86.39 mL/min Estimated GFR (MDRD) > 60 (>60) Glucose 140 H (74-106) mg/dL Calcium 8.2 L (8.5-10.1) mg/dL JAMSHID Results - Last 24 hrs: Microbiology 05/31/17 13:15 Aerobic Blood Culture - Preliminary Blood - Arm, Left NO GROWTH AFTER 2 DAYS Anaerobic Blood Culture - Preliminary NO GROWTH AFTER 2 DAYS 05/31/17 13:40 Urine Culture - Final Urine, Catheterized Citrobacter Amalonaticus Med Orders - Current: Current Medications Acetaminophen (Tylenol) 650 mg PO BEDTIME [facility] Last Admin: 06/01/17 21:03 Dose: 650 mg Acetaminophen (Tylenol) 650 mg PO Q4H PRN PRN Reason: Pain/Fever Last Admin: 06/01/17 01:09 Dose: 650 mg Aspirin (Halfprin) 81 mg PO DAILY [facility] Last Admin: 06/02/17 08:13 Dose: 81 mg Atorvastatin Calcium (Lipitor) 10 mg PO BEDTIME [facility] Last Admin: 06/01/17 21:03 Dose: 10 mg Cholecalciferol (Vitamin D3) 2,000 units PO DAILY [facility] Last Admin: 06/02/17 08:13 Dose: 2,000 units Lactated Ringer's (Ringers, Lactated) 1,000 mls @ 100 mls/hr IV ASDIRECTED [facility] Last Admin: 06/01/17 23:18 Dose: 100 mls/hr Metformin HCl (Glucophage Xr) 500 mg PO BEDTIME [facility] Last Admin: 06/01/17 21:03 Dose: 500 mg Paroxetine HCl (Paxil) 10 mg PO DAILY [facility] Last Admin: 06/02/17 08:13 Dose: 10 mg Discontinued Medications Acetaminophen (Tylenol Extra Strength) 1,000 mg PO ONETIME ONE Stop: 05/31/17 12:24 Last Admin: 05/31/17 13:19 Dose: 1,000 mg Lactated Ringer's (Ringers, Lactated) 1,000 mls @ 1,000 mls/hr IV BOLUS ONE Stop: 05/31/17 13:21 Last Admin: 05/31/17 13:19 Dose: 1,000 mls/hr Ceftriaxone Sodium 1 gm/ (Sodium Chloride) 50 mls @ 100 mls/hr IV ONETIME ONE Stop: 05/31/17 14:44 Last Admin: 05/31/17 15:41 Dose: 100 mls/hr Ceftriaxone Sodium 1 gm/ (Sodium Chloride) 50 mls @ 100 mls/hr IV Q24H [facility] Last Admin: 06/01/17 13:30 Dose: 100 mls/hr Levofloxacin/Dextrose 500 mg/ (Premix) 100 mls @ 100 mls/hr IV Q24H [facility] Last Admin: 06/01/17 15:14 Dose: 100 mls/hr Lactated Ringer's (Ringers, Lactated) 250 mls @ 250 mls/hr IV ASDIRECTED [facility] Last Admin: 05/31/17 23:50 Dose: 250 mls/hr Ceftriaxone Sodium 1 gm/ (Sodium Chloride) 50 mls @ 100 mls/hr IV ONETIME ONE Stop: 06/02/17 11:29 Last Admin: 06/02/17 10:35 Dose: 100 mls/hr Levofloxacin/Dextrose 500 mg/ (Premix) 100 mls @ 100 mls/hr IV ONETIME ONE Stop: 06/02/17 12:59 Last Admin: 06/02/17 11:12 Dose: 100 mls/hr
== END 2017-06-02 15:05 | disposition home or self-care (01) | DRG 872 ==
LOC: JP.ED 12:03 → JP.MS 14:27
PROVIDERS: ADMIT Internal Medicine; ATTEND Internal Medicine
DX: N39.0 Urinary tract infection, site not specified (principal); R50.9 Fever, unspecified; E78.00 Pure hypercholesterolemia, unspecified; A41.9 Sepsis, unspecified organism; B96.89 Other specified bacterial agents as the cause of diseases classified elsewhere; E11.9 Type 2 diabetes mellitus without complications; Z79.899 Other long term (current) drug therapy; E78.5 Hyperlipidemia, unspecified; F32.9 Major depressive disorder, single episode, unspecified; Z85.828 Personal history of other malignant neoplasm of skin
CPT/HCPCS: 36415; 51798; 71046 ×2; 80048; 81001; 85027; 87040; 87086; 87088; 87186; 96360; 99285; A9270; J7120; 82962; 85025; J0696; J1956; J7050

== ENCOUNTER 2018-05-19 13:11 | Emergency (ER) | payer MEDICARE, BC ==
[2018-05-19 13:26] VITALS: BP 127/63
--- NOTE | 2018-05-19 13:35 | EDM.PDOC ---
ED HPI GENERAL MEDICAL PROBLEM - General Chief Complaint: Lower Extremity Injury/Pain Stated Complaint: FELL ON ICE/HIP Time Seen by Provider: 05/19/18 13:15 Source of Information: Reports: Patient, Family History Limitations: Reports: No Limitations - History of Present Illness INITIAL COMMENTS - FREE TEXT/NARRATIVE: 73-year-old male slipped on the ice falling hard on his left hip this morning. It's painful to stand and bear weight, he can ambulate by "limping along". No other injury. Pain is mostly located in the posterior left hip and buttock. Onset: Sudden Duration: Hour(s): (Within the past few hours) Location: Reports: Lower Extremity, Left Worsens with: Reports: Other (Movement or weightbearing) Associated Symptoms: Reports: No Other Symptoms Left Hip Pain Score (Numeric/FACES): 5 - Related Data Allergies Allergy/AdvReac Type Severity Reaction Status Date / Time No Known Allergies Allergy Verified 05/19/18 13:26 Home Meds: Home Meds Cholecalciferol (Vitamin D3) [Vitamin D3] 1 cap PO DAILY 10/30/14 [History] atorvaSTATin [Lipitor] 10 mg PO BEDTIME 10/30/14 [History] metFORMIN [Glucophage] 500 mg PO BEDTIME 10/30/14 [History] Aspirin [Halfprin] 81 mg PO DAILY 07/16/15 [History] Sertraline HCl 50 mg PO DAILY 05/19/18 [History] Past Medical History HEENT History: Reports: Hard of Hearing Cardiovascular History: Reports: High Cholesterol Other Cardiovascular History: vaso vagal response Genitourinary History: Reports: BPH Other Musculoskeletal History: right elbow 1992 with hardware Other Neuro History: numbness pain in right thigh "down the side" Psychiatric History: Reports: Depression Endocrine/Metabolic History: Reports: Diabetes, Type II Oncologic (Cancer) History: Reports: Basal Cell Carcinoma Other Dermatologic History: skin ca on nose and chest - Infectious Disease History Infectious Disease History: Reports: Chicken Pox, Measles, Mumps - Past Surgical History Other HEENT Surgeries/Procedures: BASAL CELL CARCINOMA OF THE NOSE X 2 Male Surgical History: Reports: Vasectomy Musculoskeletal Surgical History: Reports: Other (See Below) Other Musculoskeletal Surgeries/Procedures:: R ELBOW FX WITH HARDWARE REPAIR Social & Family History - Caffeine Use Caffeine Use: Reports: Coffee Review of Systems - Review of Systems Review Of Systems: See Below Constitutional: Denies: Fever Respiratory: Reports: No Symptoms Cardiovascular: Reports: No Symptoms GI/Abdominal: Reports: No Symptoms Skin: Denies: Bruising Neurological: Denies: Paresthesia (No numbness of the leg) Psychiatric: Reports: No Symptoms ED EXAM, GENERAL - Physical Exam Exam: See Below Exam Limited By: No Limitations General Appearance: Alert, No Apparent Distress, Other (Fairly comfortable when lying still and supine position) Respiratory/Chest: No Respiratory Distress Extremities: Other (Remainder of the exam is limited to the lower extremities. Internal and extra rotation passively of the left hip causes intense pain with external rotation but not flexion or extension. The gluteal muscle is more tender to palpation than the femur itself. There is no shortening of the leg or rotation.) Course - Vital Signs Last Recorded V/S: Last Vital Signs Temp 97.4 F 05/19/18 13:22 Pulse 64 05/19/18 13:22 Resp 16 05/19/18 13:22 BP 127/63 05/19/18 13:22 Pulse Ox 96 05/19/18 13:22 - Orders/Labs/Meds Meds: Medications Discontinued Medications Generic Name Dose Route Start Last Admin Trade Name Freq PRN Reason Stop Dose Admin Ibuprofen 600 mg 05/19/18 14:00 05/19/18 14:06 Motrin PO 05/19/18 14:01 600 mg ONETIME ONE Administration - Re-Assessments/Exams Free Text/Narrative Re-Assessment/Exam: 05/19/18 13:34 A pelvis x-ray along with left hip was obtained. 05/19/18 14:52 IMPRESSION: Linear lucency through the left greater trochanter. An acute fracture could be considered. CT scan should be considered if there is clinical suspicion for acute fracture. Patient remained comfortable but his hip x-ray was inconclusive, this will be followed by a noncontrast left hip CT scan. 05/19/18 16:58 CT scan confirmed a comminuted nondisplaced greater trochanteric fracture. The results were discussed with orthopedics, they recommended nonweightbearing on the left leg and follow-up with orthopedics next . This was discussed with the patient and his . They are in agreement with the plan. Departure - Departure Time of Disposition: 17:16 Disposition: Home, Self-Care 01 Condition: Good Clinical Impression: Closed trochanteric fracture of femur Qualifiers: Encounter type: initial encounter Laterality: left Qualified Code(s): S72.102A - Unspecified trochanteric fracture of left femur, initial encounter for closed fracture - Discharge Information Instructions: Hip Fracture, Crutch Use, Adult Referrals: Katy Winn MD [Primary Care Provider] - Forms: ED Department Discharge Care Plan Goals: Use crutches to avoid weightbearing on the left leg. Recheck with Micky Cisneros at the clinic, orthopedics, on of next week. Call for an appointment time. A regular dose of ibuprofen or naproxen along with topical ice will be beneficial. Add stronger pain medications if needed.
[2018-05-19] MEDS ORDERED: Ibuprofen 600 MG Tab PO ONE (14:00)
--- NOTE | 2018-05-19 14:47 | CRLCR ---
3 VIEWS pelvis with left hip INDICATION: Injury. IMPRESSION: Linear lucency through the left greater trochanter. An acute fracture could be considered. CT scan should be considered if there is clinical suspicion for acute fracture. FINDINGS: Frogleg lateral view, the linear lucency is present through the greater trochanter and is only seen on the lateral projection. However, there could be a very subtle cortical lucency along the medial superior aspect of the greater trochanter on the AP view. Both hips are anatomically aligned. Symmetric mild narrowing in the hip joint spaces. Large amount of colonic stool. The bony pelvis is intact. Dictated by Alverto Ruvalcaba MD @ May 19 2018 2:42PM Signed by Dr. Alverto Ruvalcaba @ May 19 2018 2:45PM
--- NOTE | 2018-05-19 16:42 | CRLCT ---
HISTORY: Hip pain after falling injury. FINDINGS: The pelvis and left hip were studied in the axial plane. Sagittal and coronal 2 dimensional reconstructions were then performed. There is a comminuted, essentially nondisplaced fracture isolated to the left greater trochanteric region without a complete fracture of the proximal femur. There is no evidence for fracture elsewhere. 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 Severe degenerative disc disease is noted at L5/S1. No findings for mass lesion or hematoma. IMPRESSION: Comminuted fracture isolated to the left greater trochanter. A complete, transverse fracture of the proximal femur is not identified. Please note that all CT scans at this facility use dose modulation, iterative reconstruction, and/or weight-based dosing when appropriate to reduce radiation dose to as low as reasonably achievable. Dictated by Rashad Joseph MD @ May 19 2018 7:15PM Signed by Dr. Rashad Joseph @ May 19 2018 7:19PM
== END 2018-05-19 17:16 | disposition home or self-care (01) ==
LOC: JP.ED 13:11
DX: S72.102A Unspecified trochanteric fracture of left femur, initial encounter for closed fracture (principal); E11.9 Type 2 diabetes mellitus without complications; E78.00 Pure hypercholesterolemia, unspecified; Z79.82 Long term (current) use of aspirin; Z79.84 Long term (current) use of oral hypoglycemic drugs; W00.0XXA Fall on same level due to ice and snow, initial encounter
CPT/HCPCS: 73502; 73700; 99284; A9270

== ENCOUNTER 2018-10-23 07:26 | Day surgery (SDC) | payer MEDICARE, BC ==
[2018-10-23] MEDS ORDERED: Dextrose 5%-Lactated Ringers 1,000 ML IV SCH (08:00)
[2018-10-23] MEDS ORDERED: Propofol 200 MG/20 ML SDV ONE (11:00)
[2018-10-23] MEDS ORDERED: fentaNYL 100 MCG/2 ML SDV ONE (11:00)
[2018-10-23 12:53] VITALS: BP 131/84; PULSE 77
--- NOTE | 2018-10-25 08:49 | OR ---
DATE OF PROCEDURE: 10/23/2018 PREOPERATIVE DIAGNOSIS: History of colon polyps. POSTOPERATIVE DIAGNOSES: 1. History of colon polyps. 2. Normal colonoscopic examination today. OPERATIVE PROCEDURE: Screening colonoscopy. ANESTHESIA: IV sedation. INDICATIONS FOR PROCEDURE: This is a 73-year-old status post a colonoscopy, done in [place] in 2013. At that time, a polyp was reported in the splenic flexure area, and at this point, a followup colonoscopy with biopsies and/or polypectomy as indicated. Potential risks including bleeding and perforation were discussed, and the patient wishes to proceed. DETAILS OF PROCEDURE: The patient was taken to the operating room and placed in a left lateral decubitus position. IV sedation was administered, after which the initial digital rectal exam was performed and was unremarkable. The colonoscope was then placed into the rectum with retroflexion revealing uncomplicated hemorrhoidal columns. Scope was eventually passed to the level of the cecum. The prep was quite good to that level. No abnormalities were noted. Specifically, there were no areas of diverticular disease. No areas of colitis, and no polyps or other signs of neoplasia. The scope was then withdrawn, the above findings were reconfirmed, and the procedure was then concluded. Given the patient's history of colon polyps 5 years ago, he should have a repeat colonoscopy in 5 years. Lan Galarza MD /[id number]
== END 2018-10-23 13:20 | disposition home or self-care (01) ==
LOC: JP.SDS 07:26
PROVIDERS: ATTEND Surgery
DX: Z12.11 Encounter for screening for malignant neoplasm of colon (principal); K64.9 Unspecified hemorrhoids; Z86.010 Personal history of colon polyps
CPT/HCPCS: G0121; J2704; J3010; J7042

== ENCOUNTER 2024-08-02 10:26 | Emergency (ER) | payer MEDICARE, BC ==
[2024-08-02 10:38] VITALS: BP 111/75; PULSE 51
[2024-08-02] MEDS: Doxycycline 100 MG Cap PO ONE (11:08)
== END 2024-08-02 11:13 | disposition home or self-care (01) ==
LOC: JP.ED 10:26
DX: S70.361A Insect bite (nonvenomous), right thigh, initial encounter (principal); E78.00 Pure hypercholesterolemia, unspecified; E11.9 Type 2 diabetes mellitus without complications; Z79.899 Other long term (current) drug therapy; K21.9 Gastro-esophageal reflux disease without esophagitis; Z79.82 Long term (current) use of aspirin; Z79.84 Long term (current) use of oral hypoglycemic drugs; W57.XXXA Bitten or stung by nonvenomous insect and other nonvenomous arthropods, initial encounter
CPT/HCPCS: 99281; A9270